=== PATIENT | male | born 1990 | race Caucasian/White ===

== ENCOUNTER → 2018-01-07 | Outpatient (CLI) | payer SELFPAY | LOC: AMB 03:05 | PROVIDERS: ATTEND Nurse Practitioner | DX: K92.1 Melena (principal); R53.1 Weakness | CPT/HCPCS: A0425; A0427 ==

== ENCOUNTER → 2018-01-07 | Outpatient (CLI) | payer SELFPAY | LOC: AMB 15:37 | PROVIDERS: ATTEND Nurse Practitioner | DX: K92.2 Gastrointestinal hemorrhage, unspecified (principal) | CPT/HCPCS: A0425; A0426 ==